=== PATIENT | female | born 1980 | race African-American/Black ===

== ENCOUNTER 2020-04-27 13:24 | Inpatient (IN) | payer SELFPAY ==
[~2020-04-27] VITALS: Ht 162.6 cm; Wt 56.7 kg
[2020-04-27 13:31] VITALS: BP 113/71
--- NOTE | 2020-04-27 13:43 | Emergency Room Report ---
History of Present Illness General Chief Complaint: Abdominal Pain Source: Patient Present Illness HPI Patient is a 40-year-old female presents after increased diffuse abdominal pain. Reports having onset of symptoms yesterday. Associated nausea and vomiting. Denies any prior abdominal surgeries. States that she had been having multiple episodes of non-bloody emesis. Reports occasional alcohol use but does not drink regularly. States that she been having increased nausea and vomiting. Denies regular marijuana use. States that she had been having no fever. Reports having diffuse crampy pain. Did not radiate. 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 Patient History Past Medical History: see triage record Last Menstrual Period: 04/16/20 Now: No Reviewed Nursing Documentation: PMH: Agreed; PSxH: Agreed Nursing Documentation-PMH Past Medical History: No Stated History Review of Systems All Other Systems: negative except mentioned in HPI Physical Exam Vital Signs Date Time Temp Pulse Resp B/P (MAP) Pulse Ox O2 Delivery O2 Flow Rate FiO2 04/27/20 13:28 98.4 96 19 113/71 (85) 97 Room Air Sp02 EP Interpretation: reviewed, normal General Appearance: normal inspection, well appearing, no apparent distress, alert, GCS 15 Head: atraumatic ENT: normal ENT inspection, hearing grossly normal, normal voice Neck: normal inspection, full range of motion, supple, no bony tend Respiratory: normal inspection, lungs clear, normal breath sounds, no respiratory distress, no retraction, no wheezing Cardiovascular #1: regular rate, rhythm, no edema Gastrointestinal: normal inspection, normal bowel sounds, non tender, soft, no guarding, no hernia Genitourinary: no CVA tenderness Musculoskeletal: normal inspection, back normal, normal range of motion Neurologic: alert, motor strength/tone normal, historical interpreter III-XII nml as tested, oriented x3, responsive, speech normal, normal inspection Psychiatric: normal inspection, judgement/insight normal, mood/affect normal Medical Decision Making Diagnostic Impression: Primary Impression: Intractable vomiting Additional Impressions: Metabolic acidosis Dehydration ER Course Presented for abdominal pain and vomiting. Differential diagnosis include was not limited to gastritis, colitis, marijuana hyperemesis, , appendicitis among others. Because of complexity of patient's case laboratory tests and imaging studies were ordered. Patient noted be somewhat tachycardic with diffuse abdominal pain . CT imaging shows no evidence of acute disease per radiology report. Patient noted to have persistent pain after medications. Pelvic ultrasound was ordered.Patient did have persistent vomiting and was admitted for intractable vomiting. Dr. Jara was contacted for inpatient management Labs Test 04/27/20 13:30 04/27/20 15:00 White Blood Count 19.3 K/UL (4.8-10.8) Red Blood Count 4.78 M/UL (4.20-5.40) Hemoglobin 13.4 G/DL (12.0-16.0) Hematocrit 41.1 % (37.0-47.0) Mean Corpuscular Volume 86 FL (80-99) Mean Corpuscular Hemoglobin 28.1 PG (27.0-31.0) Mean Corpuscular Hemoglobin Concent 32.7 G/DL (32.0-36.0) Red Cell Distribution Width 12.8 % (11.6-14.8) Platelet Count 360 K/UL (150-450) Mean Platelet Volume 6.5 FL (6.5-10.1) Neutrophils (%) (Auto) % (45.0-75.0) Lymphocytes (%) (Auto) % (20.0-45.0) Monocytes (%) (Auto) % (1.0-10.0) Eosinophils (%) (Auto) % (0.0-3.0) Basophils (%) (Auto) % (0.0-2.0) Differential Total Cells Counted 100 Neutrophils % (Manual) 92 % (45-75) Lymphocytes % (Manual) 4 % (20-45) Monocytes % (Manual) 4 % (1-10) Eosinophils % (Manual) 0 % (0-3) Basophils % (Manual) 0 % (0-2) Band Neutrophils 0 % (0-8) Platelet Estimate Adequate Platelet Morphology Normal Red Blood Cell Morphology Normal Prothrombin Time 12.0 SEC (9.30-11.50) Prothromb Time International Ratio 1.1 (0.9-1.1) Activated Partial Thromboplast Time 25 SEC (23-33) Sodium Level 144 MMOL/L (136-145) Potassium Level 3.4 MMOL/L (3.5-5.1) Chloride Level 105 MMOL/L (98-107) Carbon Dioxide Level 21 MMOL/L (21-32) Anion Gap 18 mmol/L (5-15) Blood Urea Nitrogen 16 mg/dL (7-18) Creatinine 0.8 MG/DL (0.55-1.30) Estimat Glomerular Filtration Rate > 60 mL/min (>60) Glucose Level 133 MG/DL (74-106) Calcium Level 10.4 MG/DL (8.5-10.1) Total Bilirubin 1.5 MG/DL (0.2-1.0) Direct Bilirubin 0.2 MG/DL (0.0-0.3) Aspartate Amino Transf (AST/SGOT) 18 U/L (15-37) Alanine Aminotransferase (ALT/SGPT) 16 U/L (12-78) Alkaline Phosphatase 93 U/L (46-116) Total Protein 8.5 G/DL (6.4-8.2) Albumin 4.9 G/DL (3.4-5.0) Globulin 3.6 g/dL Albumin/Globulin Ratio 1.4 (1.0-2.7) Lipase 63 U/L (73-393) Urine Color Yellow Urine Appearance Slightly cloudy Urine pH 5 (4.5-8.0) Urine Specific [place] 1.020 (1.005-1.035) Urine Protein 3+ (NEGATIVE) Urine Glucose (UA) Negative (NEGATIVE) Urine Ketones 4+ (NEGATIVE) Urine Blood 4+ (NEGATIVE) Urine Nitrite Negative (NEGATIVE) Urine Bilirubin Negative (NEGATIVE) Urine Urobilinogen 1 MG/DL (0.0-1.0) Urine Leukocyte Esterase 1+ (NEGATIVE) Urine RBC 10-15 /HPF (0 - 2) Urine WBC 2-4 /HPF (0 - 2) Urine Squamous Epithelial Cells Few /LPF (NONE/OCC) Urine Bacteria Few /HPF (NONE) Urine HCG, Qualitative Negative (NEGATIVE) Urine Opiates Screen Positive (NEGATIVE) Urine Barbiturates Screen Negative (NEGATIVE) Phencyclidine (PCP) Screen Negative (NEGATIVE) Urine Amphetamines Screen Negative (NEGATIVE) Urine Benzodiazepines Screen Negative (NEGATIVE) Urine Cocaine Screen Negative (NEGATIVE) Urine Marijuana (THC) Screen Positive (NEGATIVE) Last Vital Signs Date Time Temp Pulse Resp B/P (MAP) Pulse Ox O2 Delivery O2 Flow Rate FiO2 04/27/20 13:28 98.4 96 19 113/71 (85) 97 Room Air Status: unchanged Disposition: ADMITTED INPATIENT Condition: Stable Scripts Ondansetron (Zofran) 4 Mg Tablet 4 MG ORAL Q6H PRN for 10 Days, TAB Prov: Mal Rebolledo MD 04/28/20 Pb Stone MD Apr 27, 2020 13:43
[2020-04-27] MEDS ORDERED: Omnipaque-300 100ml vial INJ PRN (13:45)
[2020-04-27] MEDS ORDERED: Morphine Sulfate 2mg/ml Inj(IV/IM USE ONLY) IVP ONE ×2 (13:45→17:15)
[2020-04-27 13:54] LABS: HEMATOCRIT 41.1 % (37.0-47.0); HEMOGLOBIN 13.4 G/DL (12.0-16.0); MEAN CORPUSCULAR VOLUME 86 FL (80-99); PLATELET COUNT 360 K/UL (150-450); RED BLOOD COUNT 4.78 M/UL (4.20-5.40); RED CELL DISTRIBUTION WIDTH 12.8 % (11.6-14.8); WHITE BLOOD COUNT 19.3 K/UL (4.8-10.8)
[2020-04-27 14:07] LABS: INR 1.1 (0.9-1.1)
[2020-04-27 14:15] LABS: ANION GAP 18 mmol/L (5-15); BLOOD UREA NITROGEN 16 mg/dL (7-18); CALCIUM 10.4 MG/DL (8.5-10.1); CARBON DIOXIDE 21 MMOL/L (21-32); CHLORIDE 105 MMOL/L (98-107); CREATININE 0.8 MG/DL (0.55-1.30); POTASSIUM 3.4 MMOL/L (3.5-5.1); SODIUM 144 MMOL/L (136-145)
[2020-04-27 14:24] LABS: ALANINE AMINOTRANSFERASE 16 U/L (12-78); ALBUMIN 4.9 G/DL (3.4-5.0); ALBUMIN/GLOBULIN RATIO 1.4 (1.0-2.7); ALKALINE PHOSPHATASE 93 U/L (46-116); ASPARTATE AMINO TRANSFERASE 18 U/L (15-37); BILIRUBIN,TOTAL 1.5 MG/DL (0.2-1.0)
[2020-04-27 14:25] LABS: BILIRUBIN,DIRECT 0.2 MG/DL (0.0-0.3)
[2020-04-27] MEDS ORDERED: LORazepam Inj 2mg/ml 1ml IV ONE (14:30)
[2020-04-27] MEDS ORDERED: Dextrose 5%/Lactated Ringer's 1,000 ML IV SCH ×2 (14:30)
[2020-04-27 15:59] LABS: BILIRUBIN, URINE NEGATIVE (NEGATIVE); GLUCOSE, URINE (UA) NEGATIVE (NEGATIVE); KETONES,URINE 4+ (NEGATIVE); LEUKOCYTE ESTERASE ,URINE 1+ (NEGATIVE); NITRITE,URINE NEGATIVE (NEGATIVE); PH,URINE 5 (4.5-8.0); PROTEIN,URINE 3+ (NEGATIVE); UROBILINOGEN,URINE 1 MG/DL (0.0-1.0)
[2020-04-27 16:00] LABS: APPEARANCE,URINE SLIGHTLY CLOUDY; COLOR,URINE YELLOW
[2020-04-27] MEDS ORDERED: cefTRIAXone 1 GM in NS 55 ML IVPB ONE (16:45)
[2020-04-27 16:50] VITALS: BP 118/72
--- NOTE | 2020-04-27 16:55 | Diagnostic Imaging Report ---
EXAM: CT CT Abdomen Pelvis w/Contrast INDICATION: Reason For Exam: ABD PAIN. COMPARISON: None TECHNIQUE: Axial images were obtained through the abdomen pelvis with intravenous contrast. Sagittal and coronal reformats are generated. All CT scans at this facility are performed using dose modulation techniques as appropriate to a performed exam including the following: automated exposure control with adjustment of the mA and/or kV according to patient size. RADIATION DOSE: CTDIvol: 3.4 mGy DLP: 159 mGy-cm Dose information generated by the CT scanner is available in PACS. FINDINGS: The lung bases are clear. The liver and spleen are homogeneous. Gallbladder is without sludge or stone and there is no wall thickening. The pancreas is unremarkable. Adrenals are normal in morphology. The kidneys are normal in size, shape and axis. Small bowel loops are nondistended. The colon is also nondistended with average amount of stool. The appendix is normal. There is no free fluid or free air. No pathologic adenopathy demonstrated. Urinary bladder is mostly empty. There is a retroflexed uterus. There is no suspicious superficial soft tissue or osseous abnormality. IMPRESSION: NO SIGN OF ACUTE DISEASE.
--- NOTE | 2020-04-27 17:57 | Diagnostic Imaging Report ---
EXAM: US Pelvis Transabdominal, Complete CLINICAL HISTORY: PAIN TECHNIQUE: Real-time complete transabdominal pelvic ultrasound with image documentation. COMPARISON: CT imaging of the abdomen and pelvis performed earlier today. FINDINGS: Limitations: Limited evaluation due to patient motion and inability to cooperate with the study fully. Uterus/cervix: The uterus measures 8.5 x 5.4 x 4.2 cm. Endometrial stripe measures 2.6 cm and is thickened. No myometrial mass. Right ovary: Right ovary measures 2.7 x 1.7 x 2.1 cm. Flow to both ovaries noted. Normal blood flow. Left ovary: Left ovary measures 2.4 x 1.6 x 2.1 cm. Free fluid: No free fluid. Bladder: Unremarkable as visualized. Wall is normal thickness for degree of distention. Other findings: The study was prematurely terminated due to the patient's condition. IMPRESSION: 1. Markedly limited study as discussed above. 2. Thickened endometrial stripe presumably on the basis of phase of menstruation. Short-term imaging in 2 months is advised at the very least. 3. Flow is demonstrated to both ovaries. 4. No free fluid.
[2020-04-27] MEDS ORDERED: Morphine Sulfate 4mg/ml Inj (IV USE ONLY) IVP ONE (18:15)
[2020-04-27 19:38] VITALS: BP 122/70
--- NOTE | 2020-04-27 20:19 | History & Physical ---
History and Physical History & Physicial Dictated for Int Med-Lit Barba MD Apr 27, 2020 20:19
[2020-04-27] MEDS ORDERED: Miralax 17gm pkt ORAL PRN (20:30)
[2020-04-27] MEDS ORDERED: Nitroglycerin Subl 0.4mg tab SL PRN (20:30)
[2020-04-27] MEDS: D5 1/2NS 1,000 ML IV SCH (21:12)
[2020-04-27] MEDS: Heparin 5000 units/ml inj SUBQ SCH (21:16)
[2020-04-28] VITALS: BP 88/64
[2020-04-28] MEDS: Morphine Sulfate 4mg/ml Inj (IV USE ONLY) IVP PRN ×2 (03:17→09:14)
[2020-04-28 04:00] VITALS: BP 85/45
[2020-04-28 07:46] LABS: BASOPHILS % (AUTO) 0.6 % (0.0-2.0); EOSINOPHILS % (AUTO) 0.1 % (0.0-3.0); HEMOGLOBIN 11.7 G/DL (12.0-16.0); LYMPHOCYTES % (AUTO) 18.7 % (20.0-45.0); MEAN CORPUSCULAR VOLUME 87 FL (80-99); MONOCYTES % (AUTO) 6.8 % (1.0-10.0); NEUTROPHILS % (AUTO) 73.9 % (45.0-75.0); PLATELET COUNT 251 K/UL (150-450); RED BLOOD COUNT 4.04 M/UL (4.20-5.40); RED CELL DISTRIBUTION WIDTH 13.1 % (11.6-14.8); WHITE BLOOD COUNT 13.1 K/UL (4.8-10.8)
[2020-04-28 08:00] VITALS: BP 109/60
[2020-04-28 08:02] LABS: ALANINE AMINOTRANSFERASE 18 U/L (12-78); ALBUMIN 3.8 G/DL (3.4-5.0); ALBUMIN/GLOBULIN RATIO 1.4 (1.0-2.7); ALKALINE PHOSPHATASE 73 U/L (46-116); AMYLASE 64 U/L (25-115); ANION GAP 12 mmol/L (5-15); ASPARTATE AMINO TRANSFERASE 16 U/L (15-37); BILIRUBIN,TOTAL 0.9 MG/DL (0.2-1.0); BLOOD UREA NITROGEN 13 mg/dL (7-18); CALCIUM 9.2 MG/DL (8.5-10.1); CARBON DIOXIDE 25 MMOL/L (21-32); CHLORIDE 109 MMOL/L (98-107); CREATININE 0.7 MG/DL (0.55-1.30); POTASSIUM 3.4 MMOL/L (3.5-5.1); SODIUM 146 MMOL/L (136-145)
[2020-04-28] MEDS ORDERED: Pantoprazole Inj IVP SCH (09:00)
[2020-04-28] MEDS: Heparin 5000 units/ml inj SUBQ SCH (09:13)
[2020-04-28 12:00] VITALS: BP 107/68
[2020-04-28] MEDS: D5 1/2NS 1,000 ML IV SCH (12:16)
--- NOTE | 2020-04-28 14:17 | Consultation ---
History of Present Illness General Date patient seen: Apr 28, 2020 Chief Complaint: Abdominal Pain Present Illness HPI 40-year-old female presented to er with diffuse abdominal pain with nausea and vomiting started one day prior to admission. Denies any prior abdominal surgeries. States that she had been having multiple episodes of non-bloody emesis. Reports having diffuse crampy pain. she is admitted for further w/u. Allergies: Coded Allergies: No Known Allergies (Unverified , 04/27/20) Medication History No Active Prescriptions or Reported Meds Patient History Healthcare decision maker Resuscitation status Advanced Directive on File Past Medical/Surgical History Past Medical/Surgical History: (1) No significant past medical history Review of Systems All Other Systems: negative except mentioned in HPI Physical Exam General Appearance: thin Lines, tubes and drains: peripheral HEENT: normocephalic, atraumatic Neck: non-tender, normal alignment Respiratory/Chest: chest wall non-tender, lungs clear Breasts: no masses Cardiovascular/Chest: normal rate Abdomen: normal bowel sounds Extremities: normal range of motion Last 24 Hour Vital Signs Date Time Temp Pulse Resp B/P (MAP) Pulse Ox O2 Delivery O2 Flow Rate FiO2 04/28/20 09:00 Room Air 04/28/20 08:00 97.5 70 20 109/60 (76) 99 04/28/20 04:00 97.6 67 18 85/45 (58) 99 04/28/20 00:00 98.0 64 18 88/64 (72) 96 04/27/20 21:00 Room Air 04/27/20 20:09 Room Air 04/27/20 19:45 98.1 76 18 122/70 98 Room Air 04/27/20 19:38 98.1 76 18 122/70 98 Room Air 04/27/20 16:50 98.4 88 18 118/72 98 Room Air 04/27/20 14:51 92 18 110/68 98 04/27/20 14:21 96 19 113/71 97 04/27/20 14:15 98.4 Intake and Output 04/27/20 04/28/20 19:00 07:00 Intake Total 1525 ml Balance 1525 ml Intake Oral 1000 ml IV Total 525 ml # Voids 1 Laboratory Tests Test 04/27/20 15:00 04/28/20 05:55 Urine Color Yellow Urine Appearance Slightly cloudy Urine pH 5 (4.5-8.0) Urine Specific [place] 1.020 (1.005-1.035) Urine Protein 3+ (NEGATIVE) H Urine Glucose (UA) Negative (NEGATIVE) Urine Ketones 4+ (NEGATIVE) H Urine Blood 4+ (NEGATIVE) H Urine Nitrite Negative (NEGATIVE) Urine Bilirubin Negative (NEGATIVE) Urine Urobilinogen 1 MG/DL (0.0-1.0) H Urine Leukocyte Esterase 1+ (NEGATIVE) H Urine RBC 10-15 /HPF (0 - 2) H Urine WBC 2-4 /HPF (0 - 2) Urine Squamous Epithelial Cells Few /LPF (NONE/OCC) Urine Bacteria Few /HPF (NONE) Urine HCG, Qualitative Negative (NEGATIVE) Urine Opiates Screen Positive (NEGATIVE) H Urine Barbiturates Screen Negative (NEGATIVE) Phencyclidine (PCP) Screen Negative (NEGATIVE) Urine Amphetamines Screen Negative (NEGATIVE) Urine Benzodiazepines Screen Negative (NEGATIVE) Urine Cocaine Screen Negative (NEGATIVE) Urine Marijuana (THC) Screen Positive (NEGATIVE) H White Blood Count 13.1 K/UL (4.8-10.8) H Red Blood Count 4.04 M/UL (4.20-5.40) L Hemoglobin 11.7 G/DL (12.0-16.0) L Hematocrit 35.0 % (37.0-47.0) L Mean Corpuscular Volume 87 FL (80-99) Mean Corpuscular Hemoglobin 28.9 PG (27.0-31.0) Mean Corpuscular Hemoglobin Concent 33.3 G/DL (32.0-36.0) Red Cell Distribution Width 13.1 % (11.6-14.8) Platelet Count 251 K/UL (150-450) Mean Platelet Volume 6.3 FL (6.5-10.1) L Neutrophils (%) (Auto) 73.9 % (45.0-75.0) Lymphocytes (%) (Auto) 18.7 % (20.0-45.0) L Monocytes (%) (Auto) 6.8 % (1.0-10.0) Eosinophils (%) (Auto) 0.1 % (0.0-3.0) Basophils (%) (Auto) 0.6 % (0.0-2.0) Activated Partial Thromboplast Time 27 SEC (23-33) Sodium Level 146 MMOL/L (136-145) H Potassium Level 3.4 MMOL/L (3.5-5.1) L Chloride Level 109 MMOL/L (98-107) H Carbon Dioxide Level 25 MMOL/L (21-32) Anion Gap 12 mmol/L (5-15) Blood Urea Nitrogen 13 mg/dL (7-18) Creatinine 0.7 MG/DL (0.55-1.30) Estimat Glomerular Filtration Rate > 60 mL/min (>60) Glucose Level 97 MG/DL (74-106) Calcium Level 9.2 MG/DL (8.5-10.1) Total Bilirubin 0.9 MG/DL (0.2-1.0) Aspartate Amino Transf (AST/SGOT) 16 U/L (15-37) Alanine Aminotransferase (ALT/SGPT) 18 U/L (12-78) Alkaline Phosphatase 73 U/L (46-116) Total Protein 6.5 G/DL (6.4-8.2) Albumin 3.8 G/DL (3.4-5.0) Globulin 2.7 g/dL Albumin/Globulin Ratio 1.4 (1.0-2.7) Amylase Level 64 U/L (25-115) Lipase 110 U/L (73-393) Height (Feet): 5 Height (Inches): 4.00 Weight (Pounds): 125 Medications Current Medications Medications (Trade) Dose Ordered Sig/Jose Route PRN Reason Start Time Stop Time Status Last Admin Dose Admin Acetaminophen (Tylenol) 650 mg Q4H PRN ORAL fever 04/27/20 20:30 05/27/20 20:29 Dextrose (Dextrose 50%) 25 ml Q30M PRN IV Hypoglycemia 04/27/20 20:30 07/26/20 20:29 Dextrose (Dextrose 50%) 50 ml Q30M PRN IV Hypoglycemia 04/27/20 20:30 07/26/20 20:29 Dextrose/Sodium Chloride 1,000 ml @ 75 mls/hr [id number] IV 04/27/20 20:30 05/27/20 20:29 04/28/20 12:16 Diphenhydramine HCl (Benadryl) 25 mg Q6H PRN ORAL Itching/Pruritis 04/27/20 20:30 10/17/20 20:29 Heparin Sodium (Porcine) (Heparin 5000 units/ml) 5,000 units EVERY 12 HOURS SUBQ 04/27/20 21:00 06/11/20 20:59 04/28/20 09:13 Iohexol (OMNIPAQUE-300 100ml) 100 ml NOW PRN INJ Radiology Procedure 04/27/20 13:45 04/29/20 13:44 Morphine Sulfate (Morphine Sulfate) 4 mg Q4H PRN IVP For Pain 04/27/20 21:30 05/04/20 21:29 04/28/20 09:14 Nitroglycerin (Ntg) 0.4 mg Q5M X 3 DOSES PRN SL Prn Chest Pain 04/27/20 20:30 05/27/20 20:29 Ondansetron HCl (Zofran) 4 mg Q6H PRN IVP Nausea & Vomiting 04/27/20 20:30 05/27/20 20:29 Pantoprazole (Protonix) 40 mg DAILY IVP 04/28/20 09:00 05/28/20 08:59 04/28/20 09:15 Polyethylene Glycol (Miralax) 17 gm HSPRN PRN ORAL Constipation 04/27/20 20:30 05/27/20 20:29 Temazepam (Restoril) 15 mg HSPRN PRN ORAL Insomnia 04/27/20 20:30 05/04/20 20:29 Assessment/Plan Problem List: (1) Intractable vomiting ICD Codes: R11.10 - Vomiting, unspecified SNOMED: 179716424 (2) No significant past medical history SNOMED: 241104084 Assessment/Plan: npo iv fluids check electrolytes dvt prophylaxis Mal Rebolledo MD Apr 28, 2020 14:17
[2020-04-28] MEDS ORDERED: ZOFRAN4 M1 ORAL (14:18)
[2020-04-28 16:00] VITALS: BP 105/62
--- NOTE | 2020-04-28 17:24 | Discharge Summary ---
Discharge Summary Hospital Course Date of Admission Apr 27, 2020 at 16:07 Date of Discharge Admitting Diagnosis abdominal pain, dehydration HPI Oma Nathan is a 40 year old female who was admitted on Apr 27, 2020 at 16:07 for Abdominal Pain And Dehydration Hospital Course Discharge Discharge Vital Signs Last Vital Signs Date Time Temp Pulse Resp B/P (MAP) Pulse Ox O2 Delivery O2 Flow Rate FiO2 04/28/20 12:00 97.7 67 20 107/68 (81) 96 04/28/20 09:00 Room Air Discharge Disposition Patient was discharged to Javier Jara MD Apr 28, 2020 17:24
--- NOTE | 2020-04-28 22:14 | Discharge Summary ---
DATE OF ADMISSION: 04/27/2020 DATE OF DISCHARGE: 04/28/2020 HISTORY OF PRESENT ILLNESS AND HOSPITAL COURSE: This is a 40-year-old very delightful female, who denies any past medical history or past surgical history, who presented to the emergency department complaining about diffuse abdominal pain associated with nausea and vomiting. Shortly after initial evaluation, the patient was admitted to the hospital with intractable nausea and vomiting and abdominal pain. Throughout the hospital course, the patient underwent multiple imaging studies including CT scan of the abdomen pelvic and was essentially unremarkable. Lungs are clear, and gallbladder is without any sludge or stone. Small bowel loops are nondistended. The patient underwent a pelvic ultrasound shows markedly limited study as described due to thickening, endometrial stripping presumably on the basis of menstruation. Short-term imaging in 2 months is advisable. Flow is demonstrated to both ovaries. No free fluid. The patient's transvaginal ultrasound, same finding. The patient's status improved, was able tolerate oral intake and subsequently was discharged home today to be followed as outpatient. I advised the patient if the symptoms are reappearing, come back to the [facility] hospital preferably [facility]. Discussed with the patient with regard to the imaging study. The patient's urine drug screen was noted for the marijuana as well as opioids and the patient was advised to avoid using marijuana and opioids, possibility of the induced nausea, vomiting. MEDICATIONS ON DISCHARGE: Continue discharge medication list. ACTIVITY: As tolerated. DIET: Diet would be regular diet as tolerated. Javier Jara M.D. DR: EDITH JOB#: [id number] CC:
== END 2020-04-28 18:14 | disposition home or self-care (01) | DRG 641 ==
LOC: EMR 13:59 → 4E 16:07 → EDBEDREQ 18:28 → 4E 20:32
DX: E86.0 Dehydration (principal); R10.9 Unspecified abdominal pain
CPT/HCPCS: 36415; 74177; 76830; 76856; 80053; 80307; 81003; 81025; 82150; 82248; 83690; 85007; 85025; 85610; 85730; 96361; 96365; 96375; 96376; 99285; J2405; J7030